=== PATIENT | male | born 1935 | race Caucasian/White ===

== ENCOUNTER 2018-05-02 07:51 | Emergency (ER) | payer OTHER, SELFPAY ==
[2018-05-02 08:01] VITALS: BP 183/107; PULSE 96; RESP 24; TEMP 36.3; O2SAT 98; BMI 27.9
--- NOTE | 2018-05-02 08:12 | ED.SOB ---
HPI - SOB/Dyspnea General Chief Complaint: Shortness of Breath/Dyspnea Stated Complaint: 'NEED TO HAVE FLUID TAKEN OUT OF LUNG' Time Seen by Provider: 05/02/18 08:09 Source: patient Mode of arrival: ambulatory Limitations: no limitations History of Present Illness Patient is an 82-year-old male who presents with increasing shortness of breath. He has known lung cancer which has been controlled for the last 8-9 years taking immuno suppressive therapy. Over the last 2 days he has had increasing shortness of breath in inability to lie flat at night. He had an x-ray yesterday [place] which showed a left pleural effusion. He denies any chest pain no fever no productive cough. He apparently was also diagnosed with congestive heart failure in February at [facility]. He was not placed on a diuretic at that time. MD Complaint: shortness of breath Onset (ago): day(s) (2) Related Data Home Medications Medication Instructions Recorded Confirmed CA PANTOTHENATE/FOLIC ACID/VIT 1 tab PO QDAY #0 06/09/13 (MULTIVITAMIN) [LEVOTHYROID] 125 mcg #0 07/15/13 aspirin 81 mg PO QDAY #0 11/21/16 osimertinib [Tagrisso] 80 mg #0 01/08/17 melatonin #0 07/11/17 Previous Rx's Medication Instructions Recorded atorvastatin [Lipitor] 40 mg PO HS #90 tab 01/08/17 amlodipine [Norvasc] 5 mg PO BID #60 tabs 07/06/17 furosemide 20 mg PO DAILY #7 tab 05/02/18 Allergies Allergy/AdvReac Type Severity Reaction Status Date / Time KAR Inhibitors Allergy Mild COUGH Verified 05/02/18 08:01 [KAR INHIBITORS] Review of Systems Review of Systems All systems reviewed & are unremarkable except as noted in HPI and below Constitutional Denies chills, Denies fever(s), Denies lethargy and Denies weakness Cardiovascular Denies chest pain, Denies irregular heart rhythm, Denies lightheadedness, Denies palpitations and Denies orthopnea Respiratory Reports as per HPI and Reports system reviewed and no additional complaints, except as docu Gastrointestinal Gastrointestinal: Denies abdominal pain, Denies change in bowel habits, Denies diarrhea, Denies nausea and Denies vomiting Musculoskeletal Denies back pain, Denies muscle weakness, Denies numbness and Denies tingling Neurologic Denies numbness, Denies tingling and Denies weakness Endocrine Denies palpitations PFSH Medical History Hyperlipidemia (Acute) Hypertension (Acute) Hypothyroid (Acute) Lung cancer (Acute) Social History Smoking Status: Former smoker Exam Initial Vital Signs Initial Vital Signs: Vital Signs Temperature 97.4 F L 05/02/18 08:01 Pulse Rate 96 H 05/02/18 08:01 Respiratory Rate 24 05/02/18 08:01 Blood Pressure 183/107 H 05/02/18 08:01 Pulse Oximetry 98 05/02/18 08:01 Const General: cooperative and well developed Nutritional Appearance: well nourished Orientation: alert, awake, oriented x3 and not confused Resp Effort & Inspection: normal respiratory effort, able to speak in complete sentences and no use of accessory muscles Auscultation: clear to auscultation bilaterally and breath sounds absent (base) on th left Cardio Rhythm: regular rhythm Heart Sounds: S1 normal, S2 normal and no rubs GI Palpation: soft, No rigid and No tender Skin General: no rashes or lesions noted, No jaundice and No petechiae Neuro General: alert, oriented x3, gait normal and no focal motor deficits Speech: speech normal Course Orders Ordered: Discontinued Medications Furosemide (Lasix) 20 mg IV NOW ONE Stop: 05/02/18 09:22 Last Admin: 05/02/18 09:26 Dose: 20 mg Vital Signs - 8 hr 05/02/18 08:01 05/02/18 08:31 Temperature 97.4 F L Pulse Rate 96 H 81 Respiratory Rate 24 18 Blood Pressure 183/107 H Blood Pressure [Left Arm] 175/94 H Pulse Oximetry 98 97 MDM - SOB/Dyspnea Lab Data Attestation: I reviewed the patient's lab results. Result diagrams: 05/02/18 08:15 05/02/18 08:15 Lab Results 05/02/18 05/02/18 05/02/18 Range/Units 08:15 08:15 08:15 WBC 9.0 (4.5-11.0) X10^3/uL RBC 3.40 L (4.5-5.9) X10^6/uL Hgb 10.2 L (13.5-17.5) g/dL Hct 30.6 L (41-53) % MCV 90.0 (80-100) fL MCH 30.1 (26-34) PG MCHC 33.5 (30-36) % RDW 16.7 H (11.6-14.8) % Plt Count 263 (150-400) X10^3/uL Neut % (Auto) 79.9 H (50-75) % Lymph % (Auto) 5.4 L (25-40) % [place] % (Auto) 11.2 (3-14) % Eos % (Auto) 2.6 (2-4) % Baso % (Auto) 0.9 (0-2) % Neut # (Auto) 7200 H (2404-3206) /uL PT 13.7 H (10.1-12.7) SECONDS INR 1.3 (0.9-1.3) APTT 30 (26.4-36.2) SECONDS Sodium 138 (137-145) mmol/L Potassium 4.5 (3.4-5.1) mmol/L Chloride 104 (98-107) mmol/L Carbon Dioxide 23 (22-32) mmol/L BUN 30 H (9-20) mg/dL Creatinine 1.40 H (0.66-1.25) mg/dL Estimated GFR 48.5 L (>60) mL/min BUN/Creatinine Ratio 21.4 (6-22) Glucose 91 (80-110) mg/dL Calcium 8.8 (8.4-10.2) mg/dL Troponin I (0.01-0.034) ng/mL B-Natriuretic Peptide (<100) 18 05/02/18 Range/Units 08:15 09:26 WBC (4.5-11.0) X10^3/uL RBC (4.5-5.9) X10^6/uL Hgb (13.5-17.5) g/dL Hct (41-53) % MCV (80-100) fL MCH (26-34) PG MCHC (30-36) % RDW (11.6-14.8) % Plt Count (150-400) X10^3/uL Neut % (Auto) (50-75) % Lymph % (Auto) (25-40) % [place] % (Auto) (3-14) % Eos % (Auto) (2-4) % Baso % (Auto) (0-2) % Neut # (Auto) (6774-1783) /uL PT (10.1-12.7) SECONDS INR (0.9-1.3) APTT (26.4-36.2) SECONDS Sodium (137-145) mmol/L Potassium (3.4-5.1) mmol/L Chloride (98-107) mmol/L Carbon Dioxide (22-32) mmol/L BUN (9-20) mg/dL Creatinine (0.66-1.25) mg/dL Estimated GFR (>60) mL/min BUN/Creatinine Ratio (6-22) Glucose (80-110) mg/dL Calcium (8.4-10.2) mg/dL Troponin I 0.021 (0.01-0.034) ng/mL B-Natriuretic Peptide 2100.0 H (<100) Imaging Data Chest x-ray: Radiologist's impression: PROCEDURE: XR CHEST 1V INDICATIONS: short of breath pleural effusion TECHNIQUE: One view of the chest was acquired. COMPARISON: [facility], , CHEST 1 VIEW, 07/24/2013, 13:03. FINDINGS: Surgical changes and devices: Surgical clips in the left supraclavicular fossa.. Lungs and pleura: Moderate-sized left sided pleural effusion. Increased opacification in the left lung base which could represent compressive atelectasis versus pneumonia. Mediastinum: Mediastinal contours appear normal. Heart size is normal. Bones and chest wall: No suspicious bony lesions. Overlying soft tissues appear unremarkable. IMPRESSION: 1. Moderate-sized left sided pleural effusion. 2. Left basilar consolidation compatible with breast atelectasis versus pneumonia. PE CT: Radiologist's impression: PROCEDURE: CT ANGIO CHEST PE PROTOCOL INDICATIONS: known lung cancer, left pleural effusion (less then prior) TECHNIQUE: After the administration of intravenous contrast, 2 mm thick sections acquired from the pulmonary apices to the posterior costophrenic angles. 3-dimensional maximum intensity projection (MIP) coronal and sagittal reformats were then acquired through the thorax. For radiation dose reduction, the following was used: automated exposure control, adjustment of mA and/or kV according to patient size. COMPARISON: [facility], CT, CT CHEST ABDOMEN PELVIS WITH CONTRAST, 11/06/2017, 10:31. FINDINGS: Image quality: Excellent. Pulmonary arteries: There are poorly defined intraluminal filling defects seen within the left lower lobar and segmental pulmonary arteries, with very irregular margins and additional amorphous intraluminal filling defects within the left main pulmonary artery. These are unusual for typical acute pulmonary emboli and may represent subacute or chronic sequela. Please correlate clinically Lungs and pleura: Loculated left pleural effusion with pleural enhancement is again noted, which is slightly increased since prior study dated 11/06/17. There is adjacent left lung atelectasis and ill-defined consolidation within the left lower lobe. No pneumothorax seen. Small right pleural effusion with adjacent atelectasis. Also diffuse airway thickening. Mediastinum: Heart size is enlarged and there are coronary artery calcifications, without pericardial effusion. Enlarged mediastinal and bilateral hilar lymphoid tissue is present with subcarinal lymphadenopathy increase since 11/06/17 measuring 2.6 x 1.4 cm, previously 1.8 x 0.6 cm. There is also interval enlargement of right paratracheal lymph node on image 53 series 4. Additional prevascular lymph nodes appear enlarged and image 59 series 4. Thoracic aorta is normal in caliber and enhancement. Esophagus is normal in caliber, without hiatal hernia. Bones and chest wall: No suspicious bony lesions. Ribs and thoracic spine appear intact throughout. Thyroid gland grossly unremarkable. No axillary or supraclavicular adenopathy. Abdomen: Visualized upper abdominal solid organs appear normal in the early arterial phase of enhancement. IMPRESSION: Amorphous and poorly defined, atypical intraluminal filling defects within the left main pulmonary artery as well as the left lower lobar and segmental pulmonary arteries. These could represent sequela of subacute or chronic pulmonary emboli although cannot exclude acute disease. Loculated mild to moderate left pleural effusion with pleural enhancement in keeping with exudative etiology. This is slightly increased since the prior study. Interval enlargement of mediastinal and bilateral hilar lymph nodes as above, in keeping with active metastatic disease. Cardiomegaly. Findings are personally telephoned and discussed with Dr. Hammer in the emergency department 0938 hours on 05/02/18. ECG Data Attestation: I personally reviewed and interpreted this ECG as follows: Prior ECG tracings: available for review Interpretation: Normal sinus rhythm rate [address] changes similar to previous MDM Narrative Medical decision making narrative: Blood patient's chest x-ray actually looks much better than and 2013. I he is sitting this is the worst shortness of breath that he has ever had. His CT is negative for any acute PE he does have been old PE which was previously seen in October 2017. I do not believe this to be acute or his current problem. I believe his current problem to be acute CHF. His BNP is elevated at 2100 he has newly diagnosed CHF last month. He is not currently on a diuretic. His oxygen levels within normal limits on he is not clinically dyspnea. At this time treat as an outpatient and follow-up with primary. I also do not believe him to need thoracentesis for his pleural effusion. His perfusion is chronic and actually looks improved from 2013. Discharge Plan Departure Patient Disposition: Home, Self-Care Clinical Impression: Congestive heart failure (CHF) Discharge Date/Time: 05/02/18 10:45 Interventions: ED Discharge Assessment Last Done: 05/02/18 10:44 Instructions: DI for Heart Failure Activity Restrictions/Additional Instructions: *You have been diagnosed with congestive heart failure *What to do: Limit salt and fluid intake -CT showed probable old pulmonary embolism this is unlikely to be new. Plural effusion appears better than it did in 2013. At this time lytes try the water pill without draining the fluid. If no improvement then consider outpatient drainage. *Continue to take medications as directed -start of Lasix 20 mg once a day in the morning for the next 3 days then stop *Follow up with your primary care provider in 2-3 days *Return to ER if you should have increasing chest pain, increasing shortness of breath or any new, worsening or concerning symptoms Prescriptions: New furosemide 20 mg tablet 20 mg PO DAILY Qty: 7 RF: 0 No Action CA PANTOTHENATE/FOLIC ACID/VIT (MULTIVITAMIN) 1 tab PO QDAY Qty: 0 RF: 0 [LEVOTHYROID] 125 mcg Qty: 0 RF: 0 aspirin 81 MG tablet,delayed release (DR/EC) 81 mg PO QDAY Qty: 0 RF: 0 osimertinib [Tagrisso] 40 MG tablet 80 mg Qty: 0 RF: 0 atorvastatin [Lipitor] 40 MG tablet 40 mg PO HS Qty: 90 RF: 3 amlodipine [Norvasc] 5 MG tablet 5 mg PO BID Qty: 60 RF: 0 melatonin 2.5 MG tablet,chewable Qty: 0 RF: 0 Referrals: Abelardo Vegas MD [Primary Care Provider] -
--- NOTE | 2018-05-02 08:17 | DI.RAD.S_ITS ---
PROCEDURE: XR CHEST 1V INDICATIONS: short of breath pleural effusion TECHNIQUE: One view of the chest was acquired. COMPARISON: [facility], , CHEST 1 VIEW, 07/24/2013, 13:03. FINDINGS: Surgical changes and devices: Surgical clips in the left supraclavicular fossa.. Lungs and pleura: Moderate-sized left sided pleural effusion. Increased opacification in the left lung base which could represent compressive atelectasis versus pneumonia. Mediastinum: Mediastinal contours appear normal. Heart size is normal. Bones and chest wall: No suspicious bony lesions. Overlying soft tissues appear unremarkable. IMPRESSION: 1. Moderate-sized left sided pleural effusion. 2. Left basilar consolidation compatible with breast atelectasis versus pneumonia. Dictated by: Faviola David MD, PhD on 05/02/2018 at 8:55 Approved by: Faviola David MD, PhD on 05/02/2018 at 9:00
[2018-05-02 08:31] VITALS: BP 175/94; PULSE 81; RESP 18; O2SAT 97
[2018-05-02 08:35] LABS: Add Manual Diff / Slide Review NO; Basophils Percent Auto 0.9 % (0-2); Eosinophils Percent Auto 2.6 % (2-4); Hematocrit 30.6 % (41-53); Hemoglobin 10.2 g/dL (13.5-17.5); Lymphocytes Percent Auto 5.4 % (25-40); Mean Corpuscular HGB Conc 33.5 % (30-36); Mean Corpuscular Hemoglobin 30.1 PG (26-34); Monocytes Percent Auto 11.2 % (3-14); Neutrophils Absolute Auto 7200 /uL (3000-5900); Neutrophils Percent Auto 79.9 % (50-75); Platelet Count 263 X10^3/uL (150-400); Red Cell Distribution Width 16.7 % (11.6-14.8)
[2018-05-02 08:39] LABS: INR 1.3 (0.9-1.3); Prothrombin Time 13.7 SECONDS (10.1-12.7)
[2018-05-02 08:41] LABS: PTT Partial Thromboplastin Tim 30 SECONDS (26.4-36.2)
[2018-05-02 08:46] LABS: BUN Creatinine Ratio 21.4 (6-22); Blood Urea Nitrogen 30 mg/dL (9-20); Calcium 8.8 mg/dL (8.4-10.2); Carbon Dioxide 23 mmol/L (22-32); Chloride 104 mmol/L (98-107); Estimated Glomerular Filt Rate 48.5 mL/min (>60); Glucose 91 mg/dL (80-110); HEMOLYSIS < 15 (0-50); Potassium 4.5 mmol/L (3.4-5.1); Sodium 138 mmol/L (137-145)
--- NOTE | 2018-05-02 08:56 | DI.CT.S_ITS ---
PROCEDURE: CT ANGIO CHEST PE PROTOCOL INDICATIONS: known lung cancer, left pleural effusion (less then prior) TECHNIQUE: After the administration of intravenous contrast, 2 mm thick sections acquired from the pulmonary apices to the posterior costophrenic angles. 3-dimensional maximum intensity projection (MIP) coronal and sagittal reformats were then acquired through the thorax. For radiation dose reduction, the following was used: automated exposure control, adjustment of mA and/or kV according to patient size. COMPARISON: [facility], CT, CT CHEST ABDOMEN PELVIS WITH CONTRAST, 11/06/2017, 10:31. FINDINGS: Image quality: Excellent. Pulmonary arteries: There are poorly defined intraluminal filling defects seen within the left lower lobar and segmental pulmonary arteries, with very irregular margins and additional amorphous intraluminal filling defects within the left main pulmonary artery. These are unusual for typical acute pulmonary emboli and may represent subacute or chronic sequela. Please correlate clinically Lungs and pleura: Loculated left pleural effusion with pleural enhancement is again noted, which is slightly increased since prior study dated 11/06/17. There is adjacent left lung atelectasis and ill-defined consolidation within the left lower lobe. No pneumothorax seen. Small right pleural effusion with adjacent atelectasis. Also diffuse airway thickening. Mediastinum: Heart size is enlarged and there are coronary artery calcifications, without pericardial effusion. Enlarged mediastinal and bilateral hilar lymphoid tissue is present with subcarinal lymphadenopathy increase since 11/06/17 measuring 2.6 x 1.4 cm, previously 1.8 x 0.6 cm. There is also interval enlargement of right paratracheal lymph node on image 53 series 4. Additional prevascular lymph nodes appear enlarged and image 59 series 4. Thoracic aorta is normal in caliber and enhancement. Esophagus is normal in caliber, without hiatal hernia. Bones and chest wall: No suspicious bony lesions. Ribs and thoracic spine appear intact throughout. Thyroid gland grossly unremarkable. No axillary or supraclavicular adenopathy. Abdomen: Visualized upper abdominal solid organs appear normal in the early arterial phase of enhancement. IMPRESSION: Amorphous and poorly defined, atypical intraluminal filling defects within the left main pulmonary artery as well as the left lower lobar and segmental pulmonary arteries. These could represent sequela of subacute or chronic pulmonary emboli although cannot exclude acute disease. Loculated mild to moderate left pleural effusion with pleural enhancement in keeping with exudative etiology. This is slightly increased since the prior study. Interval enlargement of mediastinal and bilateral hilar lymph nodes as above, in keeping with active metastatic disease. Cardiomegaly. Findings are personally telephoned and discussed with Dr. Hammer in the emergency department 0938 hours on 05/02/18. Dictated by: Yonathan Beard M.D. on 05/02/2018 at 9:23 Approved by: Yonathan Beard M.D. on 05/02/2018 at 9:41
[2018-05-02] MEDS: FUROSEMIDE 20 MG/2 ML VIAL IV (09:26)
[2018-05-02 09:47] LABS: Troponin I 0.021 ng/mL (0.01-0.034)
[2018-05-02 10:12] VITALS: BP 175/106; PULSE 84; RESP 22; O2SAT 98
== END 2018-05-02 10:45 | disposition home or self-care (01) ==
PROVIDERS: Emergency Provider Emergency Medicine; Family Provider Family Medicine; PCP Family Medicine
DX: I50.9 Heart failure, unspecified (principal)
CPT/HCPCS: 36591; 71045; 71275; 80048; 81003; 83880; 84484; 85025; 85610; 85730; 93005; 96374; 99284; 99285; J1940; Q9967

== ENCOUNTER 2018-06-25 21:18 | Emergency (ER) | payer OTHER, SELFPAY ==
[2018-06-25 21:20] VITALS: BP 213/76; PULSE 60; RESP 16; O2SAT 98
--- NOTE | 2018-06-25 21:35 | PC.NURSE ---
EMS reported severe bleeding due to arterial laceration, applied pressure dressing in the field - bleeding appears controlled as no bleeding on face/head at present, will await MD availability before removing bandage.
[2018-06-25 22:10] VITALS: BP 194/81
--- NOTE | 2018-06-25 22:22 | ED_ITS ---
HPI - Head Injury General Chief complaint: Head Injury Stated complaint: Fall/ Head Lac Time Seen by Provider: 06/25/18 21:43 Source: patient Mode of arrival: EMS Limitations: no limitations History of Present Illness HPI Narrative: Patient is an 83-year-old male on hospice for lung cancer. States that he was sitting on the toilet earlier this evening and when he stood up his cane slipped out from under him on the floor and he fell and hit the left side of his head on a window frame. No loss of consciousness. Did have bleeding from the area. Was sent here from the [place] by air for concern of a ? arterial ?bleed patient arrived by air. Was alert and oriented. Had a bandage placed over the left side of his head. Patient not on anticoagulation. Related Data Home Medications Medication Instructions Recorded Confirmed CA PANTOTHENATE/FOLIC ACID/VIT 1 tab PO QDAY #0 06/09/13 (MULTIVITAMIN) [LEVOTHYROID] 125 mcg #0 07/15/13 aspirin 81 mg PO QDAY #0 11/21/16 osimertinib [Tagrisso] 80 mg #0 01/08/17 melatonin #0 07/11/17 Previous Rx's Medication Instructions Recorded atorvastatin [Lipitor] 40 mg PO HS #90 tab 01/08/17 amlodipine [Norvasc] 5 mg PO BID #60 tabs 07/06/17 furosemide 20 mg PO DAILY #7 tab 05/02/18 Allergies Allergy/AdvReac Type Severity Reaction Status Date / Time KAR Inhibitors Allergy Mild COUGH Verified 05/02/18 08:01 [KAR INHIBITORS] Review of Systems Constitutional Denies fatigue, Denies fever(s) and Denies headache(s) Eyes Denies diplopia and Denies loss of vision ENT Ears, Nose, Mouth, and Throat: Denies vertigo, Denies dizziness and Denies headache(s) Cardiovascular Denies chest pain, Denies syncope, Denies lightheadedness and Denies dyspnea Respiratory Denies cough and Denies dyspnea Gastrointestinal Gastrointestinal: Denies abdominal pain, Denies nausea and Denies vomiting Integumentary/Breasts Comments: Laceration/bleeding to left side of his head Neurologic Denies vertigo, Denies dizziness, Denies syncope, Denies headache(s) and Denies loss of vision Endocrine Denies fatigue Hematologic/Lymphatic Denies easy bleeding and Denies easy bruising [facility], [facility] Medical History Hyperlipidemia (Acute) Hypertension (Acute) Hypothyroid (Acute) Lung cancer (Acute) Social History Smoking Status: Former smoker Comment: Surgical history reviewed and noncontributory Family history reviewed and noncontributory Social history reviewed and noncontributory Exam Initial Vital Signs Initial Vital Signs: Vital Signs Pulse Rate 60 06/25/18 21:20 Respiratory Rate 16 06/25/18 21:20 Blood Pressure 213/76 H 06/25/18 21:20 Pulse Oximetry 98 06/25/18 21:20 Const General: cooperative, healthy appearing, comfortable, well developed, well groomed and No acute distress Orientation: alert, awake and oriented x3 HENMT Head: other (Patient with bleeding from a small puncture wound to his left scalp. Does pulseate with removal of the bandage.) Nose: external nose normal Mouth: oral mucosae normal Resp Effort & Inspection: normal respiratory effort Neuro General: alert, awake and oriented x3 Cognition: normal cognition Speech: speech normal Extrem General: normal to inspection and capillary refill normal Psych Appearance: grossly normal and well kempt Procedures Laceration Repair Laceration 1: Site: scalp Side (If applicable): left Size (cm): 0.5 Description: other (Puncture) Depth: simple, single layer Local Anesthetic: lidocaine 1% and with epi Amount of anesthesia used (mL): 5 Pre-repair: irrigated extensively Skin layer closed with: nylon Size (cm): other (2-0) Number of sutures: 3 Technique: simple, interrupted Course Vital Signs - 8 hr 06/25/18 21:20 06/25/18 22:10 06/25/18 23:09 Temperature Pulse Rate 60 64 Respiratory Rate 16 17 Blood Pressure 213/76 H Blood Pressure [Right Arm] 194/81 H 186/85 H Pulse Oximetry 98 98 06/25/18 23:51 Temperature 97.6 F Pulse Rate 60 Respiratory Rate 17 Blood Pressure 186/85 H Blood Pressure [Right Arm] Pulse Oximetry 98 MDM - Head Injury MDM Narrative Medical decision making narrative: Patient was bleeding from the left side of his scalp. Appeared to be a puncture wound. His some concerned about an arterial bleed secondary to the pulse so tomasa nature of the blood coming from the area. Three stitches were used to stop the bleeding. A compression dressing was placed over the area and the patient was observed here in the emergency department for period of time. Upon reexamination it does not appear to be continuing to bleed. Does not appear to have an expanding hematoma under the scalp. No other injuries found from the fall. We did discuss a potential head CT for evaluation of a skull fracture verses a intracranial bleed. After this discussion the patient opted not to have the CT scan of his head performed. He was given care instructions with regard to the stitches. He was informed that they do need to be removed in 7-10 days. He was given return precautions. He expressed understanding and agreement with plan. Discharge Plan Departure Patient Disposition: Home, Self-Care Clinical Impression: Laceration of scalp, CHI (closed head injury) Discharge Date/Time: 06/25/18 23:52 Interventions: ED Discharge Assessment Last Done: 06/25/18 23:51 Instructions: DI for Laceration Repair -- Simple Activity Restrictions/Additional Instructions: Take care of the stitches like we discussed. The stitches do need to be removed in the next 7-10 days. Your primary care doctor can do this. Return to the emergency department for any new or worsening symptoms Prescriptions: No Action CA PANTOTHENATE/FOLIC ACID/VIT (MULTIVITAMIN) 1 tab PO QDAY Qty: 0 RF: 0 [LEVOTHYROID] 125 mcg Qty: 0 RF: 0 aspirin 81 MG tablet,delayed release (DR/EC) 81 mg PO QDAY Qty: 0 RF: 0 osimertinib [Tagrisso] 40 MG tablet 80 mg Qty: 0 RF: 0 atorvastatin [Lipitor] 40 MG tablet 40 mg PO HS Qty: 90 RF: 3 amlodipine [Norvasc] 5 MG tablet 5 mg PO BID Qty: 60 RF: 0 melatonin 2.5 MG tablet,chewable Qty: 0 RF: 0 furosemide 20 mg tablet 20 mg PO DAILY Qty: 7 RF: 0
--- NOTE | 2018-06-25 22:44 | PC.NURSE ---
Assisted Dr Fisher with sutures. Bleeding controlled. Wound cleansed after and coban pressure dressing applied.
[2018-06-25 23:09] VITALS: BP 186/85; PULSE 64; RESP 17; O2SAT 98
--- NOTE | 2018-06-25 23:50 | PC.NURSE ---
pt. head re-wrapped with pressure dressing for discharge. Walker provided for discharge - paperwork completed.
[2018-06-25 23:51] VITALS: BP 186/85; PULSE 60; RESP 17; TEMP 36.4; O2SAT 98
== END 2018-06-25 23:52 | disposition home or self-care (01) ==
PROVIDERS: Emergency Provider Emergency Medicine; Family Provider Family Medicine; PCP Family Medicine
DX: S01.01XA Laceration without foreign body of scalp, initial encounter (principal); W19.XXXA Unspecified fall, initial encounter
CPT/HCPCS: 12001; 99282